=== PATIENT | female | born 1970 | race Caucasian/White ===

== ENCOUNTER 2019-12-31 14:19 | Emergency (ER) | payer OTHER ==
[2019-12-31] MEDS ORDERED: Sodium Chloride 0.9% 1000 ML 1,000 ML IV STA (14:47)
[2019-12-31] MEDS ORDERED: Sodium Chloride 0.9% 1000 ML 0 ML ONE (14:56)
[2019-12-31] MEDS ORDERED: Sodium Chloride 0.9% 1000 ML 1,000 ML ONE (15:00)
--- NOTE | 2019-12-31 15:18 | ERPHSYRPT ---
- History of Present Illness Time Seen by Provider: 12/31/19 15:16 Source: patient Exam Limitations: no limitations Patient Subjective Stated Complaint: cough, fever, sob Triage Nursing Assessment: pt to ED c/o cough, fever, SOB, and COVID exposure. states a coworkers was positive and she had been around the coworker prior to feeling bad. reports fever at home, tx with tylenol. last dose last night, 99.9 on arrival to ED orally. lung sounds clear and equal bilaterally, heart sounds clear. resp rates WNL and respirations appear unlabored and easy. pt states being anxious about exposure. Physician History: cough, fever, shortness of breath for 1-2 days. c/o cough, fever, SOB, and COVID exposure. states a coworkers was positive and she had been around the coworker prior to feeling bad. reports fev er at home, tx with tylenol Timing/Duration: yesterday Severity: mild Associated Symptoms: shortness of breath, cough, chills, fever Allergies/Adverse Reactions: No Known Drug Allergies Allergy (Verified 12/31/19 15:12) Home Medications: Amlodipine Besylate 5 mg PO DAILY 12/31/19 [History] Cefdinir [Omnicef 300 mg] 300 mg PO DAILY 12/31/19 [History] Citalopram Hydrobromide [Citalopram HBr] 10 mg PO DAILY 12/31/19 [History] Metoprolol Succinate 25 mg PO DAILY 12/31/19 [History] Hx Tetanus, Diphtheria Vaccination/Date Given: Yes Hx Influenza Vaccination/Date Given: Yes Hx Pneumococcal Vaccination/Date Given: No Immunizations Up to Date: Yes Travel Risk - International Travel Have you traveled outside of the country in past 3 weeks: No - Coronavirus Screening Are you exhibiting any of the following symptoms?: Yes Symptoms: Fever, Cough: New Onset, Shortness of Breath Close contact with a COVID-19 positive Pt in past 14-21 Days: Yes - Review of Systems Constitutional: Fever, Chills, Malaise Eyes: No Symptoms Ears, Nose, & Throat: No Symptoms Respiratory: Cough, No Dyspnea Cardiac: No Chest Pain, No Edema, No Syncope Abdominal/Gastrointestinal: No Abdominal Pain, No Nausea, No Vomiting, No Diarrhea Genitourinary Symptoms: No Dysuria Musculoskeletal: No Back Pain, No Neck Pain Skin: No Rash Neurological: No Dizziness, No Focal Weakness, No Sensory Changes Psychological: No Symptoms Endocrine: No Symptoms All Other Systems: Reviewed and Negative - Past Medical History Pertinent Past Medical History: Yes Neurological History: No Pertinent History Cardiac History: High Cholesterol Respiratory History: No Pertinent History Endocrine Medical History: No Pertinent History Musculoskeletal History: No Pertinent History - Past Surgical History Past Surgical History: Yes - Social History Smoking Status: Never smoker Exposure to second hand smoke: No Drug Use: none Patient Lives Alone: No - Female History Hx Now: No - Nursing Vital Signs Nursing Vital Signs: Initial Vital Signs Temperature 99.9 F 12/31/19 14:47 Pulse Rate 101 H 12/31/19 14:47 Respiratory Rate 18 12/31/19 14:47 Blood Pressure 132/77 12/31/19 14:47 O2 Sat by Pulse Oximetry 96 12/31/19 14:47 Pain Scale Pain Intensity 7 - Physical Exam General Appearance: no apparent distress, alert Eye Exam: PERRL/EOMI, eyes nml inspection Ears, Nose, Throat Exam: normal ENT inspection, TMs normal, pharynx normal, moist mucous membranes Neck Exam: normal inspection, non-tender, supple, full range of motion Respiratory Exam: diminished breath sounds, No respiratory distress Cardiovascular Exam: regular rate/rhythm, normal heart sounds, normal peripheral pulses Gastrointestinal/Abdomen Exam: soft, normal bowel sounds, No tenderness, No mass Back Exam: normal inspection, normal range of motion, No CVA tenderness, No vertebral tenderness Extremity Exam: normal inspection, normal range of motion, pelvis stable Neurologic Exam: alert, oriented x 3, cooperative, normal mood/affect, nml cerebellar function, nml station & gait, sensation nml, No motor deficits Skin Exam: normal color, warm, dry, No rash Lymphatic Exam: No adenopathy SpO2: 96 - Course Nursing assessment & vital signs reviewed: Yes - Radiology Exams Chest X-ray Interpretation: Reviewed by me (right lower lobe infiltrate) Ordered Tests: Active Orders 24 hr Category Date Time Status CHEST 1 VIEW (PORTABLE) Stat Exams 12/31/19 14:47 Ordered CBC W DIFF Stat Lab 12/31/19 14:47 Completed CMP Stat Lab 12/31/19 14:47 Ordered Lactic Acid Stat Lab 12/31/19 14:47 Completed UA W/RFX UR CULTURE Stat Lab 12/31/19 14:47 Uncollected Medication Summary Generic Name Dose Route Start Last Admin Trade Name Zuleyka PRN Reason Stop Dose Admin Sodium Chloride 1,000 mls @ 999 mls/hr 12/31/19 14:47 12/31/19 15:13 Sodium Chloride 0.9% 1000 Ml IV 12/31/19 15:47 999 mls/hr .Q1H1M STA Administration Azithromycin 500 mg in 250 mls @ 250 mls/hr 12/31/19 15:32 Zithromax 500 Mg/ 250 Ml Nacl Premix IV 12/31/19 16:31 STAT STA Ceftriaxone Sodium/Dextrose 1 g in 50 mls @ 100 mls/hr 12/31/19 15:32 12/31/19 15:39 Rocephin 1 Gm-D5w 50 Ml Bag IV 12/31/19 16:01 100 mls/hr STAT STA 100 mls/hr Administration Discontinued Medications Generic Name Dose Route Start Last Admin Trade Name Zuleyka PRN Reason Stop Dose Admin Sodium Chloride Confirm 12/31/19 14:56 Sodium Chloride 0.9% 1000 Ml Administered 12/31/19 14:57 Dose 1,000 mls @ ud .ROUTE .STK-MED ONE Sodium Chloride Confirm 12/31/19 15:00 Sodium Chloride 0.9% 1000 Ml Administered 12/31/19 15:01 Dose 1,000 mls @ ud .ROUTE .STK-MED ONE Azithromycin Confirm 12/31/19 15:37 Zithromax 500 Mg/ 250 Ml Nacl Premix Administered 12/31/19 15:38 Dose 500 mg in 250 mls @ ud IV .STK-MED ONE Ceftriaxone Sodium/Dextrose Confirm 12/31/19 15:37 Rocephin 1 Gm-D5w 50 Ml Bag Administered 12/31/19 15:38 Dose 1 g in 50 mls @ ud IV .STK-MED ONE Lab/Rad Data: Laboratory Result Diagrams 12/31/19 14:47 Laboratory Results 12/31/19 12/31/19 12/31/19 Range/Units 14:47 14:47 14:20 WBC 5.6 (4.0-10.5) K/mm3 RBC 4.24 (4.1-5.4) M/mm3 Hgb 13.8 (12.0-16.0) gm/dl Hct 41.4 (35-47) % MCV 97.6 (78-100) fl MCH 32.5 H (26-32) pg MCHC 33.3 (32-36) g/dl RDW 12.1 (11.5-14.0) % Plt Count 193 (150-450) K/mm3 MPV 9.7 (7.5-11.0) fl Gran % 73.5 H (36.0-66.0) % Eos # (Auto) 0.02 (0-0.5) Absolute Lymphs (auto) 1.07 (1.0-4.6) Absolute Monos (auto) 0.38 (0.0-1.3) Lymphocytes % 19.1 L (24.0-44.0) % Monocytes % 6.8 (0.0-12.0) % Eosinophils % 0.4 (0.00-5.0) % Basophils % 0.2 (0.0-0.4) % Absolute Granulocytes 4.11 (1.4-6.9) Basophils # 0.01 (0-0.4) Lactic Acid 1.6 (0.4-2.0) SARS-CoV-2 (PCR) POSITIVE A (NEGATIVE) - Progress Progress: unchanged Counseled pt/family regarding: lab results, diagnosis, need for follow-up, rad results - Departure Departure Disposition: Home Clinical Impression: Lab test positive for detection of COVID-19 virus, Viral pneumonia Condition: Stable Critical Care Time: Yes Critical Care Time(excluding separately billable procedures): Critical 30-74 mins Referrals: MADHU MULTANI [Primary Care Provider] - (tele visit) Instructions: Pneumonia, Adult (DC), Cough, Adult (DC), Coronavirus Disease 2019 (COVID-19), Coronavirus Disease 2019 (COVID-19) (DC) Additional Instructions: Discharge/Care Plan RUKHSANA GOLDSTEIN was seen on 12/31/19 in the Emergency Room. The patient was counseled regarding Diagnosis,Lab results, Imaging studies, need for follow up and when to return to the Emergency Room. Prescriptions given: Discharge Note I have spoken with the patient and/or caregivers. I have explained the patient's condition, diagnosis and treatment plan based on the information available to me at this time. I have answered the patient's and/or caregiver's questions and addressed any concerns. The patient and/or caregivers have as good understanding of the patient's diagnosis, condition and treatment plan as can be expected at this point. The vital signs have been stable. The patient's condition is stable and appropriate for discharge from the emergency department. The patient will pursue further outpatient evaluation with the primary care physician or other designated or consulting physician as outlined in the discharge instructions. The patient and/or caregivers are agreeable to this plan of care and follow-up instructions have been explained in detail. The patient and/or caregivers have received these instruction. The patient/and or caregivers are aware that any significant change in condition or worsening of symptoms should prompt an immediate return to this or the closest emergency department or call 911. RUKHSANA GOLDSTEIN was seen on 12/31/19 n the Emergency Room. At that time you were treated for an emergent condition, during your visit Laboratory, Radiology and/or other procedures may have been ordered. It is very important that you follow-up with your Primary Care Physician MADHU MULTANI within the next 24-48 hours to review your Emergency Room visit and the final results of testing that was ordered. Some test results such as Urine Cultures, Blood Cultures, and other cultures if ordered will not be finalized for 24-48 hours. If you do not have a Primary Care Provider please call the medical records department at [phone] ext [phone] to obtain a copy of your results or you may sign into our patient portal to obtain these results by visiting us @ [email or web address] and completing the following steps: 1. Click on the Patient Portal link 2. Click the Patient Self Enrollment Link to complete the enrollment form and entering your 3. Once the enrollment form is completed you will receive an email with a temporary ID and password at the email address you provided. 4. Next choose a user name and password. Your user name must be at least 4 characters long and your password must be at least 4 characters long. 5. Choose a security question from the list and provide your answer to the question. If you already have signed into the Health Portal you may access your Health Care Information 15/12 by the following steps: 1. Login to our website @ [email or web address] 2. Enter your original user name and password. FAQS The [facility] Health Portal is an online tool that contains your Lab Results, Radiology Reports, Visit History, Discharge Instructions and Health Summary Lab and Radiology Results will not be available for 72 hours on the portal. The Portal is a secure site, passwords are encryted and URLs are re-written so they cannot be copied and pasted. You and authorized family members are the only ones who can access your Portal. Also there is a timeout feature that protects your information if you leave the Portal page open. If you have technical difficulty please use the Contact Us link on the page this will allow you to submit any questions you have regarding the Portal or you may contact the Medical Record Department at [phone]. Prescriptions: Azithromycin [Zithromax] 250 mg PO UD 5 Days #6 tablet
[2019-12-31 15:24] LABS: Absolute Neutrophil Ct (ANC) 4.11 (1.4-6.9); BASOPHIL % 0.2 % (0.0-0.4); Basophil (Absolute #) 0.01 (0-0.4); Eosinophil % 0.4 % (0.00-5.0); Eosinophil (Absolute #) 0.02 (0-0.5); Hematocrit 41.4 % (35-47); Hemoglobin 13.8 gm/dl (12.0-16.0); Lymphocyte (Absolute #) 1.07 (1.0-4.6); Lymphocytes % 19.1 % (24.0-44.0); Mean Cell Volume 97.6 fl (78-100); Mean Corpuscular Hemoglobin 32.5 pg (26-32); Mean Corpuscular Hgb Concent. 33.3 g/dl (32-36); Mean Platelet Volume 9.7 fl (7.5-11.0); Monocyte (Absolute #) 0.38 (0.0-1.3); Monocytes % 6.8 % (0.0-12.0); Neutrophil % 73.5 % (36.0-66.0); Platelet Count 193 K/mm3 (150-450); Red Blood Count 4.24 M/mm3 (4.1-5.4); Red Cell Distribution Width 12.1 % (11.5-14.0); White Blood Count 5.6 K/mm3 (4.0-10.5)
[2019-12-31] MEDS ORDERED: Zithromax 500 MG/ 250 ML NaCl Premix 500 MG/250 ML IVPB IV STA (15:32)
[2019-12-31] MEDS ORDERED: ROCEPHIN 1 Gm-D5w 50 ml Bag** 1 G/50 ML IVPB IV STA (15:32)
[2019-12-31] MEDS ORDERED: Zithromax 500 MG/ 250 ML NaCl Premix 500 MG/250 ML IVPB IV ONE (15:37)
[2019-12-31] MEDS ORDERED: ROCEPHIN 1 Gm-D5w 50 ml Bag** 1 G/50 ML IVPB IV ONE (15:37)
[2019-12-31 15:44] LABS: ALBUMIN 4.3 g/dL (3.5-5.0); ALKALINE PHOSPHATASE 78 U/L (38-126); ANION GAP 12.4 MEQ/L (5-15); BLOOD UREA NITROGEN 12 mg/dL (7-17); CHLORIDE 106 mmol/L (98-107); Calcium 9.2 mg/dL (8.4-10.2); Carbon Dioxide 23 mmol/L (22-30); Glucose 116 mg/dL (74-106); Potassium 3.4 mmol/L (3.5-5.1); SGOT/AST 26 U/L (14-36); SGPT/ALT 16 U/L (0-35); SODIUM 137 mmol/L (137-145); Total Protein 7.8 g/dL (6.3-8.2)
[2019-12-31 17:14] VITALS: BP 139/91; PULSE 91; O2SAT 96
--- NOTE | 2019-12-31 19:35 | XRAY ---
Indication: Fever and cough. Comparison: June 09, 2019. Portable chest less inflated crowding both lung bases. No focal infiltrate, consolidation, or large effusion. Heart is not enlarged. Bony thorax intact. Impression: Continue nonacute chest.
== END 2019-12-31 18:07 | disposition home or self-care (01) ==
LOC: ED 14:19
DX: U07.1 COVID-19 (principal); J12.89 Other viral pneumonia
CPT/HCPCS: 80053; 83605; 85025; 93005; 96360; 96365; 96367; 99291; U0003; 36000; 36415; 71045; 99284; J0456; J0696